=== PATIENT | female | born 1960 | race Caucasian/White ===

== ENCOUNTER 2019-04-08 08:18 | Outpatient (CLI) | payer OTHER ==
[2019-04-08 08:57] LABS: BASOPHILS % 0.5 % (0.0-1.5); NEUTROPHILS # 6.1 # k/uL (1.4-7.7)
[2019-04-08 09:16] LABS: HDL 45 mg/dL (>40); eGFR (Non-African) > 60
== END 2019-04-08 08:20 ==
LOC: LAB 08:18
PROVIDERS: ATTEND Family Medicine
DX: Z13.29 Encounter for screening for other suspected endocrine disorder (principal); Z13.220 Encounter for screening for lipoid disorders; Z13.0 Encounter for screening for diseases of the blood and blood-forming organs and certain disorders involving the immune mechanism
CPT/HCPCS: 36415; 80053; 80061; 84443; 85025; 86803

== ENCOUNTER 2019-06-18 09:22 | Outpatient (CLI) | payer OTHER ==
[2019-06-18 09:43] LABS: BASOPHILS % 0.4 % (0.0-1.5); NEUTROPHILS # 12.7 # k/uL (1.4-7.7)
[2019-06-18 09:53] LABS: eGFR (Non-African) > 60
--- NOTE | 2019-06-18 10:49 | Diagnostic Imaging Report ---
PATIENT MR#: [id number] PATIENT PATIENT NAME: CODEY HILARIO DATE OF : 1960 REFERRING PHYSICIAN: Carmella Palomino EXAM DATE: 06/18/2019 ACCESSION NUMBER: [id number] EXAM DESCRIPTION: ABDOMEN 1VIEW HISTORY: GENERALIZED ABDOMINAL PAIN PT STATES DIVERTICULITIS ATTACK X1 MONTH COMPARISON: No pertinent prior studies are available at this time. ABDOMINAL XRAY, 3 FRONTAL VIEWS: Abdomen: Cholecystectomy clips. Bowel gas pattern: Normal bowel gas pattern without evidence of obstruction. Calcifications: No findings to suggest nephrolithiasis by x-ray sensitivity. Skeleton: Intact. IMPRESSION: No evidence of obstruction. Read by: Dr. Harley Huston Transcribed by: Harley Huston Transcribed Date: 06/18/2019 10:48:22 AM Electronically signed by: Dr. Harley Huston Date signed: 06/18/2019 10:48:22 AM
== END 2019-06-18 09:27 ==
LOC: LAB 09:22
PROVIDERS: ATTEND Family Medicine
DX: R10.84 Generalized abdominal pain (principal)
CPT/HCPCS: 36415; 74018; 80053; 85025

== ENCOUNTER 2019-06-21 08:54 | Outpatient (CLI) | payer OTHER ==
--- NOTE | 2019-06-21 14:30 | Diagnostic Imaging Report ---
PATIENT MR#: [id number] PATIENT PATIENT NAME: CODEY HILARIO DATE OF : 1960 REFERRING PHYSICIAN: Carmella Palomino EXAM DATE: 06/21/2019 ACCESSION NUMBER: [id number] EXAM DESCRIPTION: CT ABD PELVIS W/ CON CLINICAL HISTORY: LLQ PAIN AND FEVER TECHNIQUE: CT abdomen and pelvis following administration of IV contrast. 94 mL Omnipaque 350 were ad ministered IV. COMPARISON: No pertinent prior studies are available at this time. CT ABDOMEN WITH CONTRAST: Lung bases: Two 3 mm nodules in the right lower lobe (axial image 2). No lung base infiltrate or eff usion. Liver: Enlarged 22 cm length. No intrahepatic ductal dilation. Gallbladder: Cholecystectomy. Pancreas: No pancreatic duct dilation. Fatty parenchymal infiltration. Bowel loops: Nondistended. Spleen: Normal size. Adrenals: Normal size. Kidneys: No hydronephrosis. 1.8 cm right renal cyst. Aorta: Normal caliber. Peritoneum: No free air. CT PELVIS WITH CONTRAST: Colon: There is pericolonic fat stranding surrounding the proximal sigmoid colon, associated with mul tiple diverticula. Appendix: Normal appendix is seen. Bladder: Normally distended. Pelvic organs: Unremarkable. Peritoneum: No fluid. Skeleton: Mild lumbar spondylosis with grade 1 retrolisthesis of L2 over L3. IMPRESSION: 1. Acute sigmoid diverticulitis, without abscess. 2. Mild hepatomegaly with steatosis. 3. Two 3 mm nodules in the right lower lobe which are nonspecific but may be inflammatory in nature. Due to the small size and incidental finding, these may be followed up with chest CT based upon the patient's personal risk profile (ie smoking history or personal / family history of neoplasm). Findings of acute diverticulitis were discussed with Dr. Palomino by phone. Read by: Dr. Harley Huston Transcribed by: Harley Huston Transcribed Date: 06/21/2019 2:20:54 PM Electronically signed by: Dr. Harley Huston Date signed: 06/21/2019 2:30:03 PM
== END 2019-06-21 09:04 ==
LOC: RAD 08:54
PROVIDERS: ATTEND Family Medicine
DX: R10.32 Left lower quadrant pain (principal)
CPT/HCPCS: 74177; Q9967

== ENCOUNTER 2019-06-26 08:02 | Outpatient (CLI) | payer OTHER ==
[2019-06-26 08:54] LABS: eGFR (Non-African) > 60
[2019-06-26 08:55] LABS: HDL 43 mg/dL (>40)
== END 2019-06-26 08:07 ==
LOC: LAB 08:02
PROVIDERS: ATTEND Family Medicine
DX: E78.2 Mixed hyperlipidemia (principal)
CPT/HCPCS: 36415; 80053; 80061